=== PATIENT | female | born 1980 | race Asian ===

== ENCOUNTER 2019-04-26 11:37 | Emergency (ER) | payer OTHER ==
[~2019-04-26] VITALS: Ht 152.4 cm; Wt 48.0 kg
[2019-04-26 15:00] LABS: HEMATOCRIT. 36.3 % (36.0-48.0); HEMOGLOBIN. 12.2 g/dL (12.0-16.0); MEAN CORPUSCULAR HEMOGLOBIN 27.5 pg (28.0-32.0); MEAN CORPUSCULAR VOLUME 81.6 fL (81.0-99.0); MEAN PLATELET VOLUME 8.1 fl (7.4-10.4); PLATELET 220 x1000/uL (130-400); RED BLOOD CELL COUNT 4.44 mill/uL (4.2-5.4); RED CELL DISTRIBUTION WIDTH 12.7 % (11.6-14.6)
[2019-04-26 15:07] LABS: CHLORIDE 102 mEq/L (98-107)
[2019-04-26] MEDS ORDERED: POTASSIUM CHLORIDE 20MEQ TABLET SR PO ONE (15:30)
[2019-04-26] MEDS ORDERED: KETOROLAC 30MG/ML VIAL IV ONE (15:30)
[2019-04-26] MEDS ORDERED: SODIUM CHLORIDE 0.9% 1,000 ML IV ONE (15:37)
[2019-04-26] MEDS ORDERED: ONDANSETRON HCL 4MG/2ML INJ IV STA (15:37)
[2019-04-26 15:40] LABS: PLATELET ESTIMATE NORMAL
[2019-04-26 16:45] VITALS: BP 85/48
== END 2019-04-26 17:40 | disposition home or self-care (01) ==
LOC: ER 11:37
DX: K80.20 Calculus of gallbladder without cholecystitis without obstruction (principal); E87.6 Hypokalemia; R11.2 Nausea with vomiting, unspecified; Z85.41 Personal history of malignant neoplasm of cervix uteri; Z90.710 Acquired absence of both cervix and uterus; Z86.011 Personal history of benign neoplasm of the brain; Z98.890 Other specified postprocedural states
CPT/HCPCS: 36415; 76700; 80053; 83690; 85025; 96361; 96374; 96375; 99284; J1885; J2405; J7030

== ENCOUNTER 2019-04-30 05:19 | Emergency (ER) | payer OTHER ==
[~2019-04-30] VITALS: Ht 152.4 cm; Wt 50.0 kg
[2019-04-30] MEDS ORDERED: ONDANSETRON HCL 4MG/2ML INJ IV STA (06:36)
[2019-04-30] MEDS ORDERED: KETOROLAC 30MG/ML VIAL IV STA (06:36)
[2019-04-30] MEDS ORDERED: SODIUM CHLORIDE 0.9% 1,000 ML IV ONE (06:36)
[2019-04-30 07:15] LABS: BASOPHILS % 0.8 % (0.0-2.0); EOSINOPHILS % 0.3 % (0.0-5.0); HEMATOCRIT. 32.9 % (36.0-48.0); HEMOGLOBIN. 10.9 g/dL (12.0-16.0); LYMPHOCYTES % 17.3 % (20.0-50.0); MEAN CORPUSCULAR HEMOGLOBIN 27.4 pg (28.0-32.0); MEAN CORPUSCULAR VOLUME 82.5 fL (81.0-99.0); MEAN PLATELET VOLUME 7.7 fl (7.4-10.4); MONOCYTES % 13.2 % (2.0-8.0); NEUTROPHILS % 68.4 % (40.0-76.0); PLATELET 264 x1000/uL (130-400); RED BLOOD CELL COUNT 3.99 mill/uL (4.2-5.4); RED CELL DISTRIBUTION WIDTH 13.1 % (11.6-14.6)
[2019-04-30 07:20] LABS: CHLORIDE 109 mEq/L (98-107)
[2019-04-30 07:26] LABS: CLARITY URINE CLEAR (CLEAR); COLOR URINE YELLOW (YELLOW); KETONES URINE NEGATIVE (NEGATIVE); LEUKOCYTE ESTERASE URINE NEGATIVE (NEGATIVE); NITRITE URINE POSITIVE (NEGATIVE); OCCULT BLOOD URINE NEGATIVE (NEGATIVE); PROTEIN URINE TRACE (NEGATIVE)
[2019-04-30 07:46] LABS: *BARBITURATES SCREEN URINE NEGATIVE (NEGATIVE); *BENZODIAZEPINES SCREEN URINE NEGATIVE (NEGATIVE); *COCAINE SCREEN URINE NEGATIVE (NEGATIVE); METHADONE URINE SCREEN NEGATIVE (NEGATIVE)
[2019-04-30 07:47] LABS: PHENCYCLIDINE URINE SCREEN NEGATIVE (NEGATIVE)
[2019-04-30 07:48] LABS: *AMPHETAMINES SCREEN URINE PRESUMTIVE POSITIVE (NEGATIVE); CANNABINOID URINE SCREEN PRESUMTIVE POSITIVE (NEGATIVE); OPIATES URINE SCREEN PRESUMTIVE POSITIVE (NEGATIVE)
[2019-04-30] MEDS ORDERED: CEFTRIAXONE 1 G PREMIX 50 ML IV ONE (08:30)
[2019-04-30] MEDS ORDERED: TRAMADOL 50MG TABLET PO ONE (08:30)
[2019-04-30 09:30] VITALS: BP 110/68
== END 2019-04-30 09:40 | disposition home or self-care (01) ==
LOC: ER 05:19
DX: N12 Tubulo-interstitial nephritis, not specified as acute or chronic (principal); R73.9 Hyperglycemia, unspecified; F19.10 Other psychoactive substance abuse, uncomplicated; Z90.710 Acquired absence of both cervix and uterus; Z85.9 Personal history of malignant neoplasm, unspecified
CPT/HCPCS: 36415; 74176; 80053; 80305; 81003; 81025; 82962; 83690; 85025; 96365; 96375; 99284; J0696; J1885; J2405; J7030